=== PATIENT | male | born 1975 | race Caucasian/White ===

== ENCOUNTER 2016-12-16 13:37 | Emergency (ER) | payer MEDICAID ==
[2016-12-16 13:48] VITALS: BP 126/66; PULSE 75; RESP 16; TEMP 97.5; O2SAT 95
--- NOTE | 2016-12-16 14:11 | EDPHY ---
H & P Stated Complaint: right extrimity numbness and pain with swelling, after lifting someithng Source: Patient Exam Limitations: No limitations - Personal History Current Tetanus/Diphtheria Vaccine: Yes Current Tetanus Diphtheria and Acellular Pertussis (TDAP): Yes - Medical/Surgical History Hx Asthma: No Hx Chronic Respiratory Disease: No Hx Diabetes: No Hx Cardiac Disease: No Hx Renal Disease: No Hx Cirrhosis: No Hx Alcoholism: No Hx HIV/AIDS: No Other PMH: medical gerd, sciatica right, degenerative disc l1-l4, spina bifida occulta, osteoporosis. surgery - Social History Smoking Status: Never smoked Alcohol Use: Sober Drug Use: None Time Seen by Provider: 12/16/16 14:02 HPI/ROS: CHIEF COMPLAINT: Right leg swelling HISTORY OF PRESENT ILLNESS: The patient is a 41-year-old man who comes to the emergency department complaining of right leg swelling. He has been present for about a week since he lifted something heavy off the shelf at work and had mild pain in his knee. The pain has since resolved. He has been ambulating without difficulty. The he has reported some right arm swelling as well but it is not appreciable. He states that it is now resolved. He in the past has had what sounds like radicular pain in his neck. He is not currently having this pain he denies any weakness or numbness. He denies headaches. He denies any travel or trauma. REVIEW OF SYSTEMS: Constitutional: denies: chills, fever, recent illness, recent injury EENTM: denies: blurred vision, double vision, nose congestion Respiratory: denies: cough, shortness of breath Cardiac: denies: chest pain, irregular heart rate, lightheadedness, palpitations Gastrointestinal/Abdominal: denies: abdominal pain, diarrhea, nausea, vomiting, blood streaked stools Genitourinary: denies: dysuria, frequency, hematuria, pain Musculoskeletal: See HPI Skin: denies: lesions, rash, jaundice, bruising Neurological: denies: headache, numbness, paresthesia, tingling, dizziness, weakness Hematologic/Lymphatic: denies: blood clots, easy bleeding, easy bruising Immunologic/allergic: denies: HIV/AIDS, transplant EXAM: GENERAL: Well-appearing, well-nourished and in no acute distress. HEAD: Atraumatic, normocephalic. EYES: Pupils equal round and reactive to light, extraocular movements intact, sclera anicteric, conjunctiva are normal. ENT: TMs normal, nares patent, oropharynx clear without exudates. Moist mucous membranes. NECK: Normal range of motion, supple without lymphadenopathy or JVD. LUNGS: Breath sounds clear to auscultation bilaterally and equal. No wheezes rales or rhonchi. HEART: Regular rate and rhythm without murmurs, rubs or gallops. ABDOMEN: Soft, nontender, normoactive bowel sounds. No guarding, no rebound. No masses appreciated. BACK: No CVA tenderness, no spinal tenderness, step-offs or deformities EXTREMITIES: Normal range of motion, very minimal swelling and right ankle. No calf or thigh tenderness. No clubbing or cyanosis. NEUROLOGICAL: Cranial nerves II through XII grossly intact. Normal speech, normal gait. 5/5 strength, normal movement in all extremities, normal sensation PSYCH: Normal mood, normal affect. SKIN: Warm, dry, normal turgor, no visible rashes or lesions. (Giovanni Cueto) Constitutional: Initial Vital Signs Temperature (C) 36.4 C 12/16/16 13:46 Heart Rate 75 12/16/16 13:46 Respiratory Rate 16 12/16/16 13:46 Blood Pressure 126/66 H 12/16/16 13:46 O2 Sat (%) 95 12/16/16 13:46 O2 Delivery Mode Room Air Allergies/Adverse Reactions: No Known Allergies Allergy (Unverified 10/21/13 16:26) Home Medications: Medication Instructions Recorded Doxycycline Hyclate 100 mg PO BID #20 10/21/13 Medical Decision Making ED Course/Re-evaluation: We are awaiting ultrasound results. If this is negative I suspect the patient will be discharged home. He has no other significant findings on exam. Care transferred to Dr. Dao Unger at shift change. (Giovanni Cueto) Differential Diagnosis: Partial list of the Differential diagnosis considered include but were not limited to; DVT, muscle strain, contusion and although unlikely based on the history and physical exam, I also considered cellulitis, radiculopathy. (Giovanni Cueto) Other Provider: I was asked by Dr. Cueto to follow-up on US RLE and discharge patient if negative. Per Dr. Floyd at 3:15pm, study is negative. The etiology of his swelling is unknown. Per plan, patient will be discharged. (Dao Unger) Departure - Departure Disposition: Home, Routine, Self-Care Clinical Impression: Leg swelling Condition: Good Instructions: Leg Edema (ED) Additional Instructions: Follow-up with your primary care doctor next week as scheduled. Return to the ED for chest pain, numbness or worsening of condition. Referrals: NONE *PRIMARY CARE P,. [Primary Care Provider] - As per Instructions
== END 2016-12-16 15:33 | disposition home or self-care (01) ==
DX: M79.89 Other specified soft tissue disorders (principal)